=== PATIENT | male | born 1935 | race Caucasian/White ===

== ENCOUNTER 2018-06-18 06:08 | Day surgery (SDC) | payer MEDICARE ==
[2018-06-14 12:12] LABS: BASOPHILS % (AUTO) 0.7 % (0.0-5.0); EOSINOPHILS % (AUTO) 1.1 % (0.0-8.0); HEMATOCRIT 42.2 % (42-54); LYMPHOCYTES % (AUTO) 15.1 % (21.0-51.0); MEAN CORPUSCULAR HEMOGLOBIN 30.7 pg (27.0-33.0); MEAN CORPUSCULAR VOLUME 92.9 fL (79-99); MONOCYTES % (AUTO) 5.8 % (3.0-13.0); NEUTROPHILS % (AUTO) 77.3 % (40.0-77.0); PLATELET COUNT (AUTO) 227 K/uL (130-400); RED BLOOD CELL COUNT(AUTO) 4.54 MIL/uL (4.50-6.20); RED CELL DISTRIBUTION WIDTH 13.8 % (11.0-15.5); WHITE BLOOD COUNT (AUTO) 8.5 K/uL (4.8-10.8)
[2018-06-14 12:27] LABS: POTASSIUM 4.8 mmol/L (3.5-5.1)
[2018-06-14 12:43] VITALS: BP 111/58
[~2018-06-18] VITALS: Ht 172.7 cm; Wt 83.0 kg
[2018-06-18] VITALS (14 sets, daily range): BP systolic 92–111; BP diastolic 50–61
[~2018-06-18 06:08] MED LIST: AMLO5TAB9 PO; ATOR40TA71 PO; CALC3.8S NS; CARV25TA PO; CEFAZOLIN SODIUM 1 GM VIAL IVP SCH; FLUO-126 PO; GLIM4TAB3 PO; INSU3INS5 SQ; PRED5TAB PO; VALS320T16 PO
[2018-06-18] MEDS ORDERED: SODIUM CHLORIDE 0.9% 1000ML 1,000 ML IV ONE (06:25)
[2018-06-18] MEDS ORDERED: LIDOCAINE PF 2% 5ML ABBOJECT ONE (06:43)
[2018-06-18] MEDS ORDERED: PROPOFOL 10 MG/ML 20ML VIAL IV ONE (06:43)
[2018-06-18] MEDS ORDERED: GLYCOPYRROLATE 1 MG/5 ML SYRINGE ONE (06:43)
[2018-06-18] MEDS ORDERED: DEXAMETHASONE SOD PHOSPHATE 10MG/ML 1ML VIAL ONE (06:43)
[2018-06-18] MEDS ORDERED: SUCCINYLCHOLINE 200MG/10ML SYR ONE (06:43)
[2018-06-18] MEDS ORDERED: MIDAZOLAM HCL 1 MG/ML 2ML VIAL ONE (06:43)
[2018-06-18] MEDS ORDERED: NEOSTIGMINE 5MG/5ML SYR IV ONE (06:43)
[2018-06-18] MEDS ORDERED: ROCURONIUM 10MG/1ML SYR 10 MG/ML ML ONE (06:44)
[2018-06-18] MEDS ORDERED: FENTANYL CITRATE PF 50 MCG/1 ML 2ML VIAL ONE (06:44)
[2018-06-18] MEDS ORDERED: ONDANSETRON HCL 4 MG/2 ML VIAL ONE (06:44)
[2018-06-18] MEDS ORDERED: BUPIVACAINE/EPI/PF 0.25% 50 ML VIAL ONE (07:05)
--- NOTE | 2018-06-18 09:20 | NUR ---
ASSESSMENT RECEIVED PT FROM Eriberto BERUMEN RN. PT [id number]. LYING IN BED WITH HOB AT 15 DEGREES. AT BEDSIDE. INSTRUCTED ON IMPORTANCE OF STAYING FLAT IN BED FOR ANOTHER HOUR FOR A TOTAL OF 2 HOURS. BOTH PT AND VERBALIZED UNDERSTANDING.
--- NOTE | 2018-06-18 10:30 | NUR ---
DISCHARGE ORAL AND WRITTEN DISCHARGE INSTRUCTIONS GIVEN TO PT AND PTS . BAND AIDES X2 TO BACK CLEAN DRY AND INTACT. SOFT TO TOUCH. NO BLEEDING, OOZING NOTED TO SITE. PRESCRIPTION GIVEN TO . DENIES ANY DISCOMFORT AT THIS TIME.
== END 2018-06-18 10:40 | disposition home or self-care (01) ==
LOC: DAH 06:08
PROVIDERS: ATTEND Neurological Surgery
DX: S22.088A Other fracture of T11-T12 vertebra, initial encounter for closed fracture (principal); W19.XXXA Unspecified fall, initial encounter; Y93.9 Activity, unspecified; Y92.89 Other specified places as the place of occurrence of the external cause; Y99.9 Unspecified external cause status; M54.5 Low back pain; S32.019A Unspecified fracture of first lumbar vertebra, initial encounter for closed fracture; W18.30XA Fall on same level, unspecified, initial encounter; E11.9 Type 2 diabetes mellitus without complications; Z98.890 Other specified postprocedural states; I10 Essential (primary) hypertension
CPT/HCPCS: 22510; 36415; 76000; 80048; 82948 ×2; 85025; A4215; A4218; C1776; C1887; J0330; J0690; J1100; J2001; J2250; J2405; J2704; J2710; J3010; J3490 ×2; J7030

== ENCOUNTER 2019-10-24 19:08 | Emergency (ER) | payer MEDICARE ==
[2019-10-24] MEDS ORDERED: TETANUS/DIPHTHERIA TOXOID [ADULT] 0.5 ML VIAL IM ONE (20:10)
== END 2019-10-24 21:23 ==
LOC: EDH 19:08
DX: S80.811A Abrasion, right lower leg, initial encounter (principal); E11.9 Type 2 diabetes mellitus without complications; V49.49XA Driver injured in collision with other motor vehicles in traffic accident, initial encounter; Y93.89 Activity, other specified; Y92.488 Other paved roadways as the place of occurrence of the external cause; Y99.8 Other external cause status

== ENCOUNTER 2020-09-21 06:29 | Day surgery (SDC) | payer MEDICARE ==
[2020-09-07 11:51] LABS: BASOPHILS % (AUTO) 0.7 % (0.0-5.0); EOSINOPHILS % (AUTO) 2.2 % (0.0-8.0); HEMATOCRIT 44.8 % (42-54); LYMPHOCYTES % (AUTO) 37.1 % (21.0-51.0); MEAN CORPUSCULAR HEMOGLOBIN 29.3 pg (27.0-33.0); MEAN CORPUSCULAR HGB CONC 32.4 g/dL (32.0-36.0); MEAN CORPUSCULAR VOLUME 90.5 fL (79-99); MONOCYTES % (AUTO) 6.7 % (3.0-13.0); NEUTROPHILS % (AUTO) 51.8 % (40.0-77.0); PLATELET COUNT (AUTO) 226 K/uL (130-400); RED BLOOD CELL COUNT(AUTO) 4.95 MIL/uL (4.50-6.20); RED CELL DISTRIBUTION WIDTH 14.4 % (11.0-15.5); WHITE BLOOD COUNT (AUTO) 7.3 K/uL (4.8-10.8)
[2020-09-07 12:16] LABS: POTASSIUM 4.9 mmol/L (3.5-5.1)
[2020-09-13 10:04] VITALS: BP 177/80
[2020-09-21] VITALS (18 sets, daily range): BP systolic 85–149; BP diastolic 52–73
[~2020-09-21] VITALS: Ht 175.3 cm; Wt 79.8 kg
[~2020-09-21 06:29] MED LIST changes: +AMLO-257 PO; -AMLO5TAB9 PO; -ATOR40TA71 PO; -CALC3.8S NS; -CEFAZOLIN SODIUM 1 GM VIAL IVP SCH; -FLUO-126 PO; -GLIM4TAB3 PO; +GLIM4TAB36 PO; -INSU3INS5 SQ; +LOSA50TA64 PO; +NOVOLIN SQ; -PRED5TAB PO; +ROSU10TA28 PO; -VALS320T16 PO
[2020-09-21] MEDS ORDERED: LIDOCAINE 1%-EPI 1:100,000 20 ML VIAL IJ ONE (06:51)
[2020-09-21] MEDS ORDERED: EPINEPHRINE 1 MG/ML 30ML VIAL IJ ONE (06:52)
[2020-09-21] MEDS ORDERED: BACITRACIN 28.4 GM OINT TP ONE (06:52)
[2020-09-21] MEDS ORDERED: OXYMETAZOLINE HCL SPRAY 15 ML BOTTLE ONE (06:53)
[2020-09-21] MEDS ORDERED: LIDOCAINE PF 100MG/5ML (2%) SYRINGE 5ML ONE (07:06)
[2020-09-21] MEDS ORDERED: DEXAMETHASONE SOD PHOSPHATE 10MG/ML 1ML VIAL ONE ×2 (07:06→07:15)
[2020-09-21] MEDS ORDERED: ONDANSETRON HCL 4 MG/2 ML VIAL ONE (07:06)
[2020-09-21] MEDS ORDERED: SUCCINYLCHOLINE CHLORIDE 20 MG/ML 10 ML VIAL ONE (07:06)
[2020-09-21] MEDS ORDERED: FENTANYL CITRATE PF 50 MCG/1 ML 2ML VIAL ONE (07:07)
[2020-09-21] MEDS ORDERED: ROCURONIUM 10MG/1ML SYR 10 MG/ML ML ONE (07:07)
[2020-09-21] MEDS ORDERED: PROPOFOL 10 MG/ML 20ML VIAL IV ONE (07:07)
[2020-09-21] MEDS ORDERED: NEOSTIGMINE 5MG/5ML SYR IV ONE (07:07)
[2020-09-21] MEDS ORDERED: MIDAZOLAM HCL 1 MG/ML 2ML VIAL ONE (07:07)
[2020-09-21] MEDS ORDERED: GLYCOPYRROLATE 1 MG/5 ML SYRINGE ONE (07:07)
[2020-09-21] MEDS ORDERED: PHENYLEPHRINE HCL 10 MG/ML 1ML VIAL IV ONE (07:12)
[2020-09-21] MEDS ORDERED: SODIUM CHLORIDE 0.9% 1000ML 1,000 ML IV ONE (07:43)
[2020-09-21] MEDS ORDERED: CEFAZOLIN SODIUM 1 GM VIAL ONE (07:48)
[2020-09-21] MEDS ORDERED: NOREPINEPHRINE BITARTRATE 1 MG/1 ML ML IV ONE (07:50)
[2020-09-21] MEDS ORDERED: ARTIFICIAL TEARS 3.5 GM OINTMENT ONE (08:18)
[2020-09-21] MEDS ORDERED: SUGAMMADEX SODIUM 200 MG/2 ML VIAL IV ONE (08:30)
[2020-09-21] MEDS ORDERED: ACETAMINOPHEN-CODEINE 300/30MG TAB PO PRN (09:45)
== END 2020-09-21 11:20 | disposition home or self-care (01) ==
LOC: DAH 06:29
PROVIDERS: ATTEND Otolaryngology Plastic Surgery within the Head & Neck
DX: J32.9 Chronic sinusitis, unspecified (principal); Z20.822 Contact with and (suspected) exposure to COVID-19; J32.4 Chronic pansinusitis; J33.8 Other polyp of sinus; I25.10 Atherosclerotic heart disease of native coronary artery without angina pectoris; I10 Essential (primary) hypertension; E11.9 Type 2 diabetes mellitus without complications
CPT/HCPCS: 31253; 31259; 31267; 61782; 36415; 80048; 82948 ×2; 85025; 87070; 87076; 87101 ×2; 87206 ×2; 87426; 87635; 93005; A4215; A4221; A4222; A4223; A4649; A4663; A6260; C9803; J0171; J0330; J0690; J1100 ×2; J2001; J2250; J2370; J2405; J2704; J2710; J3010; J3490 ×3; J7030 ×2; U0003

== ENCOUNTER → 2023-02-07 | Outpatient (CLI) | payer MEDICARE, BC | END | disposition home or self-care (01) | LOC: RAH 11:05 | PROVIDERS: ATTEND Family Medicine | DX: M85.80 Other specified disorders of bone density and structure, unspecified site (principal); M81.8 Other osteoporosis without current pathological fracture | CPT/HCPCS: 77080 ==